=== PATIENT | male | born 1960 | race African-American/Black ===

== ENCOUNTER 2017-11-12 01:01 | Inpatient (IN) | payer OTHER ==
[2017-11-12] VITALS (7 sets, daily range): BP systolic 140–167; BP diastolic 92–117
[~2017-11-12] VITALS: Ht 172.7 cm; Wt 99.6 kg
--- NOTE | ~2017-11-12 | EKG ---
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 : 1960 Requested By: Order Number: [id number] MD: To Martin Measurements Intervals [place] Rate: 113 P: 15 CT: 148 QRS: 66 QRSD: 85 T: -15 QT: 315 QTc: 432 Interpretive Statements Sinus tachycardia Abnormal R-wave progression, late transition Borderline T abnormalities, inferior leads No previous ECG available for comparison Electronically Signed On 11-13-2017 13:56:59 CDT by To Martin [email or web address] <ELECTRONICALLY SIGNED> By: To Martin MD, [facility] 11/13/17 [id number] 7 To Martin MD, FACC /EPI
[2017-11-12 01:33] LABS: ABSOLUTE NEUTROPHILS 10.9 thou/uL (1.4-8.2); BASOPHILS 0.8 % (0.0-2.0); EOSINOPHILS 2.1 % (0.0-3.0); HEMATOCRIT 40.6 % (42.0-52.0); HEMOGLOBIN 13.6 gm/dL (14.0-18.0); LYMPHOCYTES 21.8 % (24.0-44.0); MCH 30.3 pg (26.0-34.0); MCHC 33.4 g/dL (28.0-37.0); MCV 90.6 fL (80.0-100.0); MONOCYTES 9.2 % (1.0-8.0); PLATELET COUNT 337 thou/uL (150-400); POLYS 66.1 % (36.0-66.0); RBC 4.48 mil/uL (4.50-6.00); RDW 13.8 % (10.5-14.5); WBC 16.5 thou/uL (4.0-11.0)
[2017-11-12 01:47] LABS: ANION GAP 10 mmol/L (7-16); BUN 13 mg/dL (7-18); CALCIUM 9.8 mg/dL (8.5-10.1); CHLORIDE 104 mmol/L (98-107); CO2 25 mmol/L (21-32); CREATININE 0.9 mg/dL (0.7-1.3); GLUCOSE 125 mg/dL (74-106); POTASSIUM 3.6 mmol/L (3.5-5.1); SODIUM 139 mmol/L (136-145)
[2017-11-12 01:55] LABS: ALBUMIN 3.7 g/dL (3.4-5.0); DIRECT BILIRUBIN 0.1 mg/dL (<0.1-0.3); LIPASE 72 U/L (73-393); SGOT 17 U/L (15-37); SGPT 26 U/L (30-65); TOTAL BILIRUBIN 0.4 mg/dL (<0.1-1.0); TOTAL PROTEIN 8.7 g/dL (6.4-8.2); TROPONIN-I < 0.04 ng/mL (<0.06)
[2017-11-12] MEDS ORDERED: LIPITOR10 MG PO (02:51)
[2017-11-12] MEDS ORDERED: LISINOPRIL20 MG PO (02:52)
[2017-11-12] MEDS ORDERED: LEXAPRO 10 MG T10 MG PO (02:52)
[2017-11-12] MEDS ORDERED: ALEVE220 M1 PO (02:53)
[2017-11-12] MEDS ORDERED: TIMOLOL GL0.5 %/5 M1 OPHTHALMIC (02:54)
[2017-11-12] MEDS ORDERED: OMEGA-31000 M1 PO (04:05)
[2017-11-12 05:54] LABS: CHOLESTEROL 183 mg/dL (<200); HDL CHOLESTEROL 43 mg/dL (>40); LDL CHOLESTEROL 125 mg/dL (<100); TC:HDL 4.3 Ratio (Not establshd); TRIGLYCERIDE 79 mg/dL (<150); VLDL 16 mg/dL (<40)
[2017-11-12 05:55] LABS: SERUM ASSESSMENT Clear
[2017-11-13 05:09] VITALS: BP 139/95
[2017-11-13 07:15] VITALS: BP 144/95
[2017-11-13 11:15] VITALS: BP 145/97
[2017-11-13 15:10] VITALS: BP 157/107
[2017-11-13 19:59] VITALS: BP 158/103
[2017-11-14 04:02] VITALS: BP 150/101
[2017-11-14 08:00] VITALS: BP 160/104
[2017-11-14 12:00] VITALS: BP 181/115
[2017-11-14 16:00] VITALS: BP 173/105
[2017-11-14 20:10] VITALS: BP 148/90
[2017-11-14 23:03] VITALS: BP 134/83
[2017-11-15 04:40] VITALS: BP 135/92
[2017-11-15 07:59] VITALS: BP 145/95
[2017-11-15] MEDS ORDERED: LOPRESSOR100 M1 PO (10:27)
[2017-11-15] MEDS ORDERED: HYDRALAZINE 5050 MG PO (10:27)
[2017-11-15] MEDS ORDERED: ASPIR 8181 MG PO (10:28)
[2017-11-15] MEDS ORDERED: INDOMETHACIN 2525 MG PO (10:35)
[2017-11-15 11:19] VITALS: BP 144/99
[2017-11-15 11:25] VITALS: BP 144/99
== END 2017-11-15 12:30 | disposition home or self-care (01) | DRG 315 ==
LOC: ER 01:01 → 2N 03:55 → EROBS 03:55 → 2N 04:20 → ENTRNSPT 11-15 12:16 → EDTRNSPTSTS 11-15 12:18 → 2N 11-15 12:30
PROVIDERS: Emergency Medicine; Nurse Practitioner Acute Care
DX: I31.9 Disease of pericardium, unspecified (principal); R65.10 Systemic inflammatory response syndrome (SIRS) of non-infectious origin without acute organ dysfunction; I10 Essential (primary) hypertension; E78.5 Hyperlipidemia, unspecified; F32.9 Major depressive disorder, single episode, unspecified; H54.8 Legal blindness, as defined in USA; K21.9 Gastro-esophageal reflux disease without esophagitis; F10.10 Alcohol abuse, uncomplicated; I16.0 Hypertensive urgency; I71.2 Thoracic aortic aneurysm, without rupture; Z83.3 Family history of diabetes mellitus; Z82.49 Family history of ischemic heart disease and other diseases of the circulatory system; Z81.2 Family history of tobacco abuse and dependence; Z79.899 Other long term (current) drug therapy; Z88.6 Allergy status to analgesic agent; Z87.891 Personal history of nicotine dependence; Z84.89 Family history of other specified conditions
CPT/HCPCS: 10081